=== PATIENT | male | born 2000 | race Caucasian/White ===

== ENCOUNTER 2025-03-18 17:09 | Emergency (ER) | payer OTHER, SELFPAY ==
[2025-03-18 17:29] VITALS: BP 104/79; PULSE 93; RESP 16; TEMP 36.8; O2SAT 99
--- NOTE | 2025-03-18 17:35 | ED_ITS ---
HPI - URI/Sore Throat General Chief Complaint: Upper Respiratory Infection Stated Complaint: SORE THROAT/LARRY/DRAINAGE/FEVER/COUGHING BLOOD Time Seen by Provider: 03/18/25 17:35 Source: patient Mode of arrival: ambulatory Limitations: no limitations History of Present Illness HPI Narrative: 25 yo M presents with c/o congestion, headache, PND, sore throat for 5 days. Reports fagitue, bodyaches. Not taking any [id number] medications to treat symptoms. All systems reviewed and negative except as noted above. Related Data Allergies Allergy/AdvReac Type Severity Reaction Status Date / Time peanut Allergy Mild Verified 03/09/17 17:54 Penicillins Allergy Unknown Verified 03/09/17 17:54 Review of Systems Review of Systems: CONSTITUTIONAL: Denies fever, chills, or sweats. EYES: Denies visual changes, redness, or discharge. ENT: Reports rhinorrhea, congestion, postnasal drainage, sore throat. Denies otalgia. CARDIOVASCULAR: Denies chest pain, palpitations, or edema. RESPIRATORY: Denies cough or dyspnea. GASTROINTESTINAL: Denies abdominal pain, nausea, vomiting, or diarrhea. GENITOURINARY: Denies dysuria or hematuria. SKIN: Denies rash or itching. MUSCULOSKELETAL: Denies back pain, joint pain, or myalgia. NEUROLOGIC: Reports headache. Denies numbness, or weakness. PSYCHIATRIC: Denies anxiety or depression. All other systems reviewed are negative, except as documented in HPI. [facility] Past Medical History Medical History (Updated 03/18/25 @ 18:05 by Ana M Arriola NP) Asthma as a kid Comments At time of signature, agree with nursing past medical, surgical, social and family history. There is no relevant family history pertinent to the presenting complaint. Exam Narrative: GENERAL: This is a well-nourished, well-developed patient, in no apparent distress. HEAD: normocephalic, atraumatic. EYES: PERRL. Sclera clear/white. Vision is grossly intact. EARS: External ears normal, auditory canals clear and without drainage, TMs normal without perforation. Hearing grossly intact. NOSE: External nose normal with mild congestion, clear nasal drainage THROAT: Mucous membranes moist, erythematous, significant postnasal drainage. No exudates NECK: Neck supple, non-tender without lymphadenopathy, masses or thyromegaly. CARDIOVASCULAR: Regular rate and rhythm without murmurs, gallops, or rubs. RESPIRATORY: Clear to auscultation. Breath sounds equal bilaterally. No wheezes, rales, or rhonchi. SKIN: warm, Dry, intact with no suspicious lesions or rash, good texture and turgor. NEURO: awake, alert, and oriented to person, place and time. There were no obvious focal neurologic abnormalities. EXTREMITIES: No joint tenderness, effusion, or edema noted. Course Course Level of Care: Express Care Visit Vital Signs Vital signs: Vital Signs Oxygen Delivery Room Air 03/18/25 17:25 Temperature 36.8 C 03/18/25 17: Pulse Rate 93 03/18/25 17: Respiratory Rate 16 03/18/25 17: Blood Pressure 104/79 03/18/25 17: Pulse Oximetry 99 03/18/25 17:29 Oxygen Delivery Room Air 03/18/25 17:25 Reviewed MDM - URI/Sore Throat MDM Narrative Medical decision making narrative: Will treat patient with antibiotic due to symptoms and exam findings. Patient is well-appearing, nontoxic. Okay for outpatient treatment Discharge Plan Discharge Clinical Impression: Acute rhinosinusitis Acute pharyngitis Qualifiers: Pharyngitis/tonsillitis etiology: unspecified etiology Qualified Code(s): J02.9 - Acute pharyngitis, unspecified Patient Disposition: Home Condition: Stable Instructions: Antibiotic Form, Pharyngitis (ED) Additional Instructions: Take medications as prescribed. Take Tylenol or ibuprofen every 6-8 hours as needed for pain. Drink at least 64 oz of water a day. Follow-up with your doctor symptoms are not improving. Patient Language: Kinyarwanda Prescriptions: New cefdinir 300 mg capsule 300 mg PO Q12H 7 Days Qty: 14 0RF Claritin-D 12 Hour 5-120 mg tablet extended release 12 hr 1 tablet PO Q12H Qty: 20 0RF No Action doxycycline hyclate 100 mg capsule 100 mg PO DAILY 10 Days Qty: 10 0RF Follow-up/Referrals: PHYSICIAN,HEAD OF ACQUISITIONS [Primary Care Provider] - Stand Alone Forms: Work/School Release IP Time of Disposition: 18:05
[2025-03-18 17:46] LABS: EDCOVIDSCREEN Negative (Negative); EDINFLUASCREEN Negative (Negative); EDINFLUBSCREEN Negative (Negative); EDSTREPNEGPOS1 Negative (Negative)
== END 2025-03-18 18:09 | disposition home or self-care (01) ==
PROVIDERS: Emergency Provider Nurse Practitioner Family
DX: J01.90 Acute sinusitis, unspecified (principal); J02.9 Acute pharyngitis, unspecified; Z20.822 Contact with and (suspected) exposure to COVID-19
CPT/HCPCS: 87081; 87426; 87804; 87880; 99213; G0463